=== PATIENT | male | born 1955 | race Caucasian/White ===

== ENCOUNTER → 2017-06-07 | Outpatient (CLI) | payer OTHER ==
--- NOTE | 2017-06-07 09:10 | DIAGNOSTIC IMAGING REPORT ---
UPPER EXT JOINT WITHOUT CLINICAL HISTORY: 61 years-old Male with M25.511 Right shoulder [id number]. Chronic right shoulder pain COMPARISON: None. TECHNIQUE: Multiplanar, multi sequence MRI of the right shoulder was performed without intravenous contrast. FINDINGS: ROTATOR CUFF: Moderate tendinosis of the supraspinatus tendon, notably within the mid fibers. There is also some low-grade partial-thickness articular sided tearing of the anterior insertional supraspinatus tendon measuring approximately 7 x 5 mm in AP and transverse dimension nicely seen on image 7series 7. No definite full-thickness tear or retraction. Mild tendinosis of the infraspinatus tendon which appears intact. The teres minor appears normal. Moderate tendinosis of the subscapularis tendon without definite tear identified. The rotator cuff musculature is normal in morphology and signal. BICEPS TENDON: The long-head biceps tendon is intact. No evidence of tendinosis. The biceps shania and anchor are intact. LABRUM: There is fraying of the superior labrum without acute labral tear identified. There is no evidence for a paralabral cyst. GLENOHUMERAL JOINT: Mild degenerative changes. There is no large glenohumeral joint effusion. There is no loose body or debris present within the glenohumeral joint. ACROMIOCLAVICULAR JOINT: There is moderate degenerative changes of the AC joint with moderate to extensive bone marrow edema of the distal clavicle and acromion with moderate capsular hypertrophy. The acromium has a gently curved undersurface. No evidence of os acromiale. Mild subacromial/subdeltoid bursitis. OUTLET SPACES: The suprascapular notch and quadrilateral space are without obstructing or space occupying lesions. BONE MARROW: No focal abnormality, fracture or marrow occupying lesion. SOFT TISSUES: The periarticular soft tissues are unremarkable. IMPRESSION: 1. Mild glenohumeral and moderate acromioclavicular degenerative changes with moderate to extensive bone marrow edema of the distal clavicle and acromion, likely reactive. 2. Moderate tendinosis of the supraspinatus with low-grade partial-thickness articular sided tearing of the anterior insertional fibers. 3. Moderate tendinosis of the subscapularis tendon without discrete tear identified. 4. Mild subacromial/subdeltoid bursitis. The above report was generated using voice recognition software. It may contain grammatical, syntax or spelling errors. Electronically signed by: Joe West M.D. 06/07/2017 9:09 AM Dictated Date/Time: 06/07/2017 8:51 AM
[2017-06-07 12:01] LABS: HEMOGLOBIN A1C 5.9 % (4.5-5.6)
[2017-06-07 12:09] LABS: ALBUMIN 3.9 gm/dl (3.4-5.0); ALKALINE PHOSPHATASE 120 U/L (45-117); ALT/SGPT 49 U/L (12-78); AST/SGOT 28 U/L (15-37); BLOOD UREA NITROGEN 23 mg/dl (7-18); CARBON DIOXIDE 25 mmol/L (21-32); CHOLESTEROL 146 mg/dl (0-200); CREATININE 1.08 mg/dl (0.60-1.40); GLUCOSE 114 mg/dl (70-99); POTASSIUM 4.1 mmol/L (3.5-5.1); SODIUM 142 mmol/L (136-145); TOTAL PROTEIN 7.1 gm/dl (6.4-8.2)
[2017-06-07 12:19] LABS: LDL CHOLESTEROL CALCULATED 86 mg/dl
== END ==
LOC: C.MRIBC 07:34
PROVIDERS: ATTEND Internal Medicine Geriatric Medicine
DX: M25.511 Pain in right shoulder (principal); Z00.00 Encounter for general adult medical examination without abnormal findings; E78.5 Hyperlipidemia, unspecified; R73.9 Hyperglycemia, unspecified; E03.9 Hypothyroidism, unspecified; K76.0 Fatty (change of) liver, not elsewhere classified